=== PATIENT | male | born 1970 | race Caucasian/White ===

== ENCOUNTER → 2017-05-08 | Outpatient (CLI) | payer BC ==
[~2017-05-08] VITALS: Ht 182.9 cm; Wt 63.5 kg
[~2017-05-08] MED LIST: PRADAXA150 MG PO; VERAPAMIL E.R240 M1 PO; ZOCOR20 MG PO
--- NOTE | ~2017-05-08 | CATHLAB ---
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 The Right Groin^ was infiltrated with subcutaneous anesthesia. A PINNACLE 4FR Sheath #[id number] sheath was inserted into the RFA^. Coronary angiography was performed using coronary diagnostic catheters. The right coronary system was accessed and visualized with a JR 4 catheter. The left coronary system was accessed and visualized with a JL 4 catheter. The left ventricle was accessed and visualized with a Pigtail catheter. The patient tolerated the procedure well and there were no complications associated with the procedure. Intraoperative Conscious Sedation Sedation start time: 11:31 Case end Time: 11:44 Versed 2 mg Fluoro Time: 1.53 minutes Dose: DAP 1204.50 cGycm2 180 mGy Contrast Type and Amount: Omnipaque 60 ml [facility] [employer] [place] [address] INVASIVE PROCEDURE REPORT Name: ISAEL SOLIS Room #: REG [facility]#: [id number] Admission: 05/08/17 Attend Phys: Reginaldo Hassan Discharge: Date of : 68 Date of Service: 05/14/17 1307 Report #: [id number] Coronary Angiography The patient's coronary anatomy is right dominant. Diagnostic Cath Left Main Quite short in length of normal origin. Early bifurcates into left anterior descending left circumflex without any significant stenosis. The left main is essentially nonexistent. LAD Moderate caliber type II vessel which courses in the anterior interventricular sulcus tapering towards a smaller caliber vessel at its terminus at the apex of the left ventricle. In its course use assistance and diagonal branches all of which are free of high-grade disease Diagonal 1 Small caliber vessel free of high-grade obstructive lesions Circumflex Moderate caliber vessel normal origin courses posteriorly giving rise to marginal branch and terminates as a small posterior vessel in the posterior aspect of the heart. History of significant obstructive coronary disease and there are no flow-limiting lesions noted OM1 Small-caliber no significant abnormalities are noted Right Coronary Moderate caliber vessel of normal origin courses posteriorly giving rise to small posterior descending artery. The posterior circulation is also noted all of which are free of high-grade disease R PDA Small-caliber vessel free of significant stenotic lesions Left Ventriculography Left Ventriculography was not performed. Hemodynamics The aortic pressure is 97/70 mmHg with a mean of 83 mmHg. The left ventricular pressure is 115/1 mmHg with a mean of mmHg. The left ventricular end diastolic pressure is 18 mmHg. Conclusion 1. Normal coronary arteries 2. Normal hemodynamics Recommendations Cardiac Risk Reduction Program <ELECTRONICALLY SIGNED> By: Reginaldo Singh MD 05/14/17 1307 1307 1307 Reginaldo Singh MD /INF
[2017-05-08 10:29] VITALS: BP 135/87
[2017-05-08 10:49] LABS: HEMATOCRIT 39.6 % (42.0-52.0); HEMOGLOBIN 13.5 gm/dL (14.0-18.0); MCH 30.7 pg (26.0-34.0); MCHC 34.1 g/dL (28.0-37.0); MCV 90.1 fL (80.0-100.0); RBC 4.39 mil/uL (4.50-6.00); RDW 13.6 % (10.5-14.5); WBC 4.7 thou/uL (4.0-11.0)
[2017-05-08 10:54] LABS: CALCIUM 9.7 mg/dL (8.5-10.1); CREATININE 1.2 mg/dL (0.7-1.3); POTASSIUM 4.2 mmol/L (3.5-5.1)
[2017-05-08 11:20] LABS: INR 1.1
== END ==
LOC: CATH 09:47
PROVIDERS: Internal Medicine
DX: I25.10 Atherosclerotic heart disease of native coronary artery without angina pectoris (principal); I49.9 Cardiac arrhythmia, unspecified

== ENCOUNTER → 2020-12-15 | Outpatient (CLI) | payer BC | END | disposition home or self-care (01) | LOC: SJCVCIMAG 07:52 | PROVIDERS: ATTEND Internal Medicine | DX: I48.0 Paroxysmal atrial fibrillation (principal); I10 Essential (primary) hypertension; E78.5 Hyperlipidemia, unspecified ==